=== PATIENT | female | born 1965 | race Caucasian/White ===

== ENCOUNTER 2024-01-09 19:11 | Emergency (ER) | payer MEDICARE, OTHER, SELFPAY ==
--- NOTE | ~2024-01-09 | CT_ITS ---
EXAMINATION: CT brain wo con DATE: 01/09/2024 22:55 INDICATION: fall, head injury . TECHNIQUE: Computed tomography (CT) of the head was performed without intravenous contrast. The mA wa s adjusted according to patient size. Iterative reconstruction technique was employed. The dose-lengt h product was 605.33 mGy-cm. COMPARISON: None. FINDINGS: No acute intracranial hemorrhage or extra-axial fluid collection. No hydrocephalus, mass, or herniation. No acute ischemic infarct. Unremarkable dural venous sinus attenuation. No acute osseous abnormality. The aerated spaces are clear. IMPRESSION: No acute intracranial process. Reviewed, dictated and finalized at location K.
--- NOTE | ~2024-01-09 | XR_ITS ---
EXAM: XR knee RT 3V, XR tibia fibula RT 2V, XR tibia fibula LT 2V, XR knee LT 3V DATE: 01/09/2024 21:19 (accession [id number]), 01/09/2024 21:20 (accession [id number]), 01/08 21:20 (accession [id number]), 01/09/2024 21:19 (accession [id number]) HISTORY: fall SATURDAY NOW VOMITING PAIN AND BRUISING . COMPARISON: None available. FINDINGS: Decreased mineralization. No fracture or dislocation. No lytic or blastic lesion. Moderate tricompartmental right knee osteoarthritis. Tricompartmental left knee osteoarthritis, moderate in t he medial compartment. 1.4 cm loose body projecting over the posterior right knee joint recess. Small right knee joint effusion. Mild left plantar enthesopathy. No erosion or periosteal change. Soft tis sues within normal limits. IMPRESSION: No acute osseous finding in the right knee or tibia/fibula. No acute osseous finding in the left knee or tibia/fibula. Reviewed, dictated and finalized at location K. IMPRESSION: No acute osseous finding in the right knee or tibia/fibula. No acute osseous finding in the left knee or tibia/fibula. IMPRESSION: No acute osseous finding in the right knee or tibia/fibula. No acute osseous finding in the left knee or tibia/fibula. IMPRESSION: No acute osseous finding in the right knee or tibia/fibula. No acute osseous finding in the left knee or tibia/fibula.
--- NOTE | ~2024-01-09 | CT_ITS ---
EXAMINATION: CT cervical spine wo con DATE: 01/09/2024 22:54 INDICATION: fall TECHNIQUE: Computed tomography (CT) of the cervical spine was performed without intravenous contrast. Automated exposure control and iterative reconstruction technique were employed. The dose-length pro duct was 169.26 mGy-cm. COMPARISON: None. FINDINGS: Mild motion artifact in the lower cervical spine. Vertebral Body Alignment: Trace anterolisthesis at C4-5, likely secondary to degenerative change. 2 m m retrolisthesis at C5-6. Craniocervical and atlantoaxial alignment: Moderate degenerative change. Alignment intact. Osseous structures/fracture: No evidence of a lytic or blastic process in the visualized spine. No e vidence of acute fracture. Severe disc space narrowing at C5-6 with marginal osteophytes. Mild wideni ng of the bilateral C5-6 facet joints, without significant degenerative change. Cervical soft tissues: The paraspinal soft tissues planes are maintained. Biapical pleural scarring. Degenerative changes: No significant degenerative changes. IMPRESSION: No acute fracture detected in the cervical spine. Grade 1 retrolisthesis at C5-6 with mild facet widening at the same level. These changes may be degen erative in nature, but traumatic injury is not excluded, consider conservative management and MRI of the cervical spine to evaluate for soft tissue injury. Reviewed, dictated and finalized at location K. IMPRESSION: No acute fracture detected in the cervical spine. Grade 1 retrolisthesis at C5-6 with mild facet widening at the same level. Thes e changes may be degenerative in nature, but traumatic injury is not excluded, consider conservative management and MRI of the cervical spine to evaluate for soft tissue injury.
--- NOTE | ~2024-01-09 | XR_ITS ---
EXAM: XR shoulder RT min 2V DATE: 01/09/2024 21:19 HISTORY: fall down 10 stairs . COMPARISON: None available. FINDINGS: Decreased mineralization. No fracture or dislocation. No lytic or blastic lesion. Joint sp aces are maintained. No erosion or periosteal change. Soft tissues within normal limits. IMPRESSION: Osteopenia. No acute osseous finding in the right shoulder. Reviewed, dictated and finalized at location K.
--- NOTE | ~2024-01-09 | CT_ITS ---
EXAMINATION: CT thoracic spine wo con DATE: 01/09/2024 22:54 INDICATION: fall . TECHNIQUE: Computed tomography (CT) of the thoracic spine was performed without intravenous contrast. Automated exposure control and iterative reconstruction technique were employed. The dose-length pro duct was 351.76 mGy-cm. COMPARISON: None FINDINGS: THORACIC SPINE: Vertebral body alignment intact. Vertebral body heights preserved. Mild multilevel concave superior e ndplate deformities in the upper thoracic spine as can be seen with osteoporosis. Mild multilevel dis c space narrowing and marginal osteophytosis. No traumatic malalignment or fracture. Biapical pleural scarring. Cholecystectomy clips. IMPRESSION: No acute fracture or traumatic malalignment detected in the thoracic spine Reviewed, dictated and finalized at location K.
[2024-01-09 19:24] VITALS: BP 146/54; PULSE 110; RESP 16; TEMP 36.6; O2SAT 100
--- NOTE | 2024-01-09 20:54 | ED.FALL ---
HPI - Fall General Chief Complaint: Fall Stated Complaint: fall, pain and vomiting Time Seen by Provider: 01/09/24 20:17 Source: patient Mode of arrival: ambulatory Limitations: no limitations History of Present Illness HPI Narrative: This is a 58-year-old female who presents to the ED with chief complaint of a fall down stairs that happened 3 days ago. Patient reports that initially she did not have much pain but the pain has been increasing in several areas of her body ever since. On my arrival patient is screaming and wailing. Reports that everything hurts. When asked to elaborate on what is causing her the most pain, she states the neck, upper back, right shoulder and bilateral knees hurt the most. Unsure of LOC. Endorses nausea vomiting and thinks this has to do with her known gastritis as well. denies numbness, weakness, further sites of pain or injury. When asked why she did not get seen at the initial onset of injury, she says that everything did not hurt the way does now. Related Data Allergies Allergy/AdvReac Type Severity Reaction Status Date / Time bupropion Allergy Anaphylaxis Verified 01/09/24 20:21 hydrochlorothiazide Allergy Anaphylaxis Verified 01/09/24 20:21 Review of Systems Review of Systems: All systems as dictated in HPI Exam Narrative: GENERAL: Laying prone in the bed and wailing on my arrival. HEAD: Normocephalic, atraumatic. EYES: PERRLA and EOMI. ENT: Nares clear, no rhinorrhea or epistaxis. Mucous membranes moist. Oropharynx without tonsillar hypertrophy exudate or other lesions. NECK: Supple. No adenopathy or masses. CHEST: No respiratory distress. Clear to auscultation. No wheezes rales or rhonchi . No chest wall tenderness or bruising. HEART: Regular rate and rhythm. No murmur heard. Normal peripheral pulses. ABDOMEN: Soft, nontender, nondistended, normal active bowel sounds. MSK: Normal range of motion. No edema. ambulatory without difficulty. Able to the raise both arms above head. mild midline cervical thoracic tenderness but no midline lumbar tenderness. SKIN: ecchymosis noted to the bilateral knees, right shoulder posteriorly. NEURO: Alert and oriented x3. No focal deficits. PSYCH: Normal mood and affect. Course Vital Signs Vital signs: Vital Signs Temperature 97.9 F 01/09/24 19:24 Pulse Rate 110 H 03/28/24 19:24 Respiratory Rate 16 01/09/24 19:24 Blood Pressure 146/54 H 01/09/24 19:24 Pulse Oximetry 100 01/09/24 19:24 Oxygen Delivery Room Air 01/09/24 19:24 Temperature 97.9 F 01/09/24 19:24 Pulse Rate 98 01/10/24 00:12 Respiratory Rate 18 01/10/24 00:12 Blood Pressure 148/68 H 01/10/24 00:12 Pulse Oximetry 97 01/10/24 00:12 Oxygen Delivery Room Air 01/09/24 19:24 MDM - Fall MDM Narrative Medical decision making narrative: This is a 58-year-old female who presents to the ED with chief complaint of diffuse pain following a fall that occurred several days ago. Vitals are normal. Exam shows bruising to the lower legs and left shoulder. X-rays of the bilateral tib-fib, knees are negative for any acute findings. Shoulder x-ray on the left side negative as well. CT thoracic, cervical spine and head CT are all negative for acute findings. Overall symptoms are consistent with contusions. Pt will be discharged in stable condition. Return precautions given and supportive measures discussed. Pt is understanding and agreeable with plan for discharge and follow-up with PCP. Discharge Plan Discharge Clinical Impression: Fall Patient Disposition: Home, Self-Care Condition: Stable Instructions: Antibiotic Form Additional Instructions: Your exam and imaging are negative for any fractures or acute findings. This is all likely soft tissue contusions. Please take Tylenol and ibuprofen regularly for pain control. If you have any new or worsening symptoms please return to the ER for further eval
[2024-01-09] MEDS: METOCLOPRAMIDE HCL INJ 10 MG/2 ML VIAL IV PUSH (21:28)
[2024-01-09] MEDS: FAMOTIDINE 20 MG/2 ML VIAL IV PUSH (21:29)
[2024-01-09] MEDS: HYDROmorphone HCL INJ (*CRX) 1 MG/ML SYR 0.5 MG IV PUSH (21:29)
[2024-01-10 00:12] VITALS: BP 148/68; PULSE 98; RESP 18; O2SAT 97
== END 2024-01-10 00:13 | disposition home or self-care (01) ==
PROVIDERS: Emergency Provider Physician Assistant
DX: S40.011A Contusion of right shoulder, initial encounter (principal); S80.02XA Contusion of left knee, initial encounter; S80.01XA Contusion of right knee, initial encounter; S19.9XXA Unspecified injury of neck, initial encounter; S29.9XXA Unspecified injury of thorax, initial encounter; M85.811 Other specified disorders of bone density and structure, right shoulder; W10.9XXA Fall (on) (from) unspecified stairs and steps, initial encounter
CPT/HCPCS: 70450; 72125; 72128; 73030; 73562; 73590; 96374; 96375; 99284; J1170; J2765